=== PATIENT | male | born 1990 | race African-American/Black ===

== ENCOUNTER 2018-07-01 14:36 | Emergency (ER) | payer SELFPAY ==
[~2018-07-01] VITALS: Ht 180.3 cm; Wt 97.1 kg
[2018-07-01] MEDS ORDERED: IV NORMAL SALINE 1000ML BAG 1,000 ML IV ONE ×2 (15:15→15:30)
[2018-07-01] MEDS ORDERED: ONDANSETRON PF 4 MG/2 ML VIAL. IV ONE (15:15)
[2018-07-01 15:21] LABS: BASO % 0 % (0-3); EOS % 0 % (0-3); HEMATOCRIT 45.4 % (39.0-53.0); HEMOGLOBIN 15.2 g/dL (13.0-17.5); LYMPH # 1.2 x10^3/uL (1.0-4.8); LYMPH % 15 % (24-48); MEAN CORPUSCULAR HEMOGLOBIN 28 pg (25-35); MEAN CORPUSCULAR HGB CONC 33 g/dL (31-37); MEAN CORPUSCULAR VOLUME 84 fL (79-100); MONO # 0.4 x10^3/uL (0.0-1.1); MONO % 5 % (0-9); NEUT # 6.2 x10^3uL (1.8-7.7); NEUT % 79 % (31-73); PLATELET COUNT 166 x10^3/uL (140-400); RED CELL DISTRIBUTION WIDTH 13.5 % (11.5-14.5); WHITE BLOOD COUNT 7.8 x10^3/uL (4.0-11.0)
[2018-07-01] MEDS ORDERED: DICYCLOMINE 20 MG/2 ML AMPUL. IM ONE (15:30)
[2018-07-01] MEDS ORDERED: KETOROLAC 30 MG/ML VIAL. IV ONE (15:30)
[2018-07-01 15:35] LABS: CALCIUM 10.4 mg/dL (8.5-10.1); CREATININE 1.1 mg/dL (0.7-1.3); GFR 95.1; POTASSIUM 3.9 mmol/L (3.5-5.1)
[2018-07-01 15:41] LABS: ALBUMIN 4.6 g/dL (3.4-5.0); ALBUMIN/GLOBULIN RATIO 1.3 (1.0-1.7); TOTAL BILIRUBIN 0.4 mg/dL (0.2-1.0); TOTAL PROTEIN 8.2 g/dL (6.4-8.2)
--- NOTE | 2018-07-01 15:43 | PHYS DOC ---
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 Patients now having withdrawal symptoms such as abdominal pain, nausea, vomiting, diarrhea, chills, sweating. He is alert and oriented. Review of Systems Review of Systems Constitutional: Denies fever or chills [] Eyes: Denies change in visual acuity, redness, or eye pain [] HENT: Denies nasal congestion or sore throat [] Respiratory: Denies cough or shortness of breath [] Cardiovascular: No additional information not addressed in HPI [] GI: Denies abdominal pain, nausea, vomiting, bloody stools or diarrhea [] : Denies dysuria or hematuria [] Musculoskeletal: Denies back pain or joint pain [] Integument: Denies rash or skin lesions [] Neurologic: Denies headache, focal weakness or sensory changes [] Endocrine: Denies polyuria or polydipsia [] All other systems were reviewed and found to be within normal limits, except as documented in this note. Current Medications Current Medications Current Medications Medications (Trade) Dose Ordered Sig/Zafar Start Time Stop Time Status Last Admin Dose Admin Dicyclomine HCl (Bentyl) 10 mg 1X ONCE 07/01/18 15:30 07/01/18 15:31 DC 07/01/18 15:42 10 MG Hydroxyzine Pamoate (Vistaril) 25 mg PRN Q6HRS PRN 07/01/18 17:15 Ketorolac Tromethamine (Toradol 30mg Vial) 30 mg 1X ONCE 07/01/18 15:30 07/01/18 15:31 DC 07/01/18 15:40 30 MG Ondansetron HCl (Zofran) 4 mg 1X ONCE 07/01/18 15:15 07/01/18 15:16 DC 07/01/18 15:38 4 MG Sodium Chloride 1,000 ml @ 1,000 mls/hr 1X ONCE 07/01/18 15:30 07/01/18 16:29 DC 07/01/18 15:37 1,000 MLS/HR Allergies Allergies Allergies Coded Allergies Type Severity Reaction Last Updated Verified No Known Drug Allergies 01/12/14 No Physical Exam Physical Exam Constitutional: Well developed, well nourished, no acute distress, non-toxic appearance. [] HENT: Normocephalic, atraumatic, bilateral external ears normal, oropharynx moist, no oral exudates, nose normal. [] Eyes: PERRLA, EOMI, conjunctiva normal, no discharge. [] Neck: Normal range of motion, no tenderness, supple, no stridor. [] Cardiovascular:Heart rate regular rhythm, no murmur [] Lungs & Thorax: Bilateral breath sounds clear to auscultation [] Abdomen: Bowel sounds normal, soft, no tenderness, no masses, no pulsatile masses. [] Skin: Warm, dry, no erythema, no rash. [] Back: No tenderness, no CVA tenderness. [] Extremities: No tenderness, no cyanosis, no clubbing, ROM intact, no edema. [] Neurologic: Alert and oriented X 3, normal motor function, normal sensory function, no focal deficits noted. [] Psychologic: Affect normal, judgement normal, mood normal. [] Current Patient Data Vital Signs Vital Signs Date Time Temp Pulse Resp B/P (MAP) Pulse Ox O2 Delivery O2 Flow Rate FiO2 07/01/18 14:38 98.3 55 24 144/65 (91) 100 Room Air 98.3 Lab Values Laboratory Tests Test 07/01/18 14:45 White Blood Count 7.8 x10^3/uL (4.0-11.0) Red Blood Count 5.40 x10^6/uL (4.30-5.70) Hemoglobin 15.2 g/dL (13.0-17.5) Hematocrit 45.4 % (39.0-53.0) Mean Corpuscular Volume 84 fL (79-100) Mean Corpuscular Hemoglobin 28 pg (25-35) Mean Corpuscular Hemoglobin Concent 33 g/dL (31-37) Red Cell Distribution Width 13.5 % (11.5-14.5) Platelet Count 166 x10^3/uL (140-400) Neutrophils (%) (Auto) 79 % (31-73) H Lymphocytes (%) (Auto) 15 % (24-48) L Monocytes (%) (Auto) 5 % (0-9) Eosinophils (%) (Auto) 0 % (0-3) Basophils (%) (Auto) 0 % (0-3) Neutrophils # (Auto) 6.2 x10^3uL (1.8-7.7) Lymphocytes # (Auto) 1.2 x10^3/uL (1.0-4.8) Monocytes # (Auto) 0.4 x10^3/uL (0.0-1.1) Eosinophils # (Auto) 0.0 x10^3/uL (0.0-0.7) Basophils # (Auto) 0.0 x10^3/uL (0.0-0.2) Sodium Level 143 mmol/L (136-145) Potassium Level 3.9 mmol/L (3.5-5.1) Chloride Level 104 mmol/L (98-107) Carbon Dioxide Level 29 mmol/L (21-32) Anion Gap 10 (6-14) Blood Urea Nitrogen 14 mg/dL (8-26) Creatinine 1.1 mg/dL (0.7-1.3) Estimated GFR (Cockcroft-Gault) 95.1 BUN/Creatinine Ratio 13 (6-20) Glucose Level 118 mg/dL (70-99) H Calcium Level 10.4 mg/dL (8.5-10.1) H Total Bilirubin 0.4 mg/dL (0.2-1.0) Aspartate Amino Transferase (AST) 21 U/L (15-37) Alanine Aminotransferase (ALT) 37 U/L (16-63) Alkaline Phosphatase 78 U/L (46-116) Creatine Kinase 311 U/L (39-308) H Total Protein 8.2 g/dL (6.4-8.2) Albumin 4.6 g/dL (3.4-5.0) Albumin/Globulin Ratio 1.3 (1.0-1.7) Laboratory Tests 07/01/18 14:45 Laboratory Tests 07/01/18 14:45 EKG EKG sinus rosalinda, no STEMI[] Interpretation Time: [address] Bhatt Radiology/Procedures Radiology/Procedures Chest xray Impressions: [facility] [address] [place] [address] IMAGING REPORT Signed PATIENT: YOMAIRA ACUNA ACCOUNT: [id number] : 1990 LOCATION: ER AGE: 28 SEX: M EXAM STATUS: REG ER ORD. PHYSICIAN: HONEY RACHEL APRN REASON: withdrawl,23 PROCEDURE: PORTABLE CHEST 1V AP chest 07/01/2017 CLINICAL INDICATION: Weakness and fatigue. COMPARISON: Chest 08/01/2014 FINDINGS: Cardiac and mediastinal silhouettes are unremarkable. No pleural effusion, pneumothorax or focal consolidation. IMPRESSION: No acute cardiopulmonary abnormality. Electronically signed by: Nikhil Peres MD (07/01/2018 4:05 PM) [facility] DICTATED and SIGNED BY: NIKHIL PERES MD DATE: 07/01/18 1605 Course & Med Decision Making Course & Med Decision Making Patient is a 28 year old male who presents with patient was on Suboxone and he took himself off of it himself again a half ago. Patients now having withdrawal symptoms such as abdominal pain, nausea, vomiting, diarrhea, chills, sweating. He is alert and oriented. Diaphoretic but skin is warm and pink. Mucus membranes moist. Patient denies chest pain or shortness of air. He states he does not remember who was giving his Suboxone. After speaking more to the patient he was not going to a clinic he was buying Suboxone off the street. Patient could not give me a good explanation on why he stopped taking the Suboxone. Abdomen is soft and nontender. Afebrile. Heart rate 58, blood pressure 143/63, 100% RA, 18RR. Patient rates his pain at a 9/10. PERRLA. No extremity swelling. I have consulted PAT team to come and talk to the patient. Lungs are clear to auscultation in all lobes. Denies numbness or tingling. Chest xray Shows no acute findings. Patient is going to follow up with [facility] in the morning and PAT team Varsha has given him the information. Patient is having a friend drive him home from ED. Patient will be given hydroxyzine before leaving. He will be prescribed Zofran, hydroxyzine, Catapres and to take ibuprofen for pain. Patient is stable and in no distress. Patient remains alert and oriented. Patient is refusing to give a urine specimen. Dragon Disclaimer Dragon Disclaimer This electronic medical record was generated, in whole or in part, using a voice recognition dictation system. Departure Departure Impression: Primary Impression: Opioid withdrawal Disposition: HOME, SELF-CARE Condition: STABLE Referrals: NO PCP (PCP) Patient Instructions: Narcotic Withdrawal, Opiate Dependence Additional Instructions: Follow-up with [facility] in the morning. Take medications as prescribed. Scripts Hydroxyzine Hcl (HYDROXYZINE HCL) 25 Mg Tablet 25 MG PO TID, #8 TAB Prov: HONEY RACHEL APRN 07/01/18 Clonidine Hcl (CATAPRES) 0.1 Mg Tablet 0.1 MG PO DAILY, #5 TAB Prov: HONEY RACHEL APRN 07/01/18 Ondansetron (ONDANSETRON ODT) 4 Mg Tab.rapdis 1 TAB PO PRN Q6-8HRS, #20 TAB Prov: HONEY RACHEL APRN 07/01/18 HONEY RACHEL APRN Jul 01, 2018 15:43
--- NOTE | 2018-07-01 15:51 | EKG ---
[facility] [address] [place] [address] Test Date: 2018-07-01 Test Time: 15:19:18 Pat Name: YOMAIRA ACUNA Department: Room: Gender: M Cocktail Waitress: : 1990 Requested By: HONEY RACHEL Order Number: [id number] Reading MD: Jewel Yusuf Measurements Intervals [place] Rate: 54 P: WI: QRS: -8 QRSD: 94 T: -8 QT: 408 QTc: 392 Interpretive Statements SINUS RHYTHM LEFTWARD AXIS NON SPECIFIC T ABNORMALITY ABNORMAL ECG Electronically Signed On 07-06-2018 9:28:58 LOGGING SUPERVISOR by Jewel Yusuf
--- NOTE | 2018-07-01 16:11 | RAD ---
AP chest 07/01/2017 CLINICAL INDICATION: Weakness and fatigue. COMPARISON: Chest 08/01/2014 FINDINGS: Cardiac and mediastinal silhouettes are unremarkable. No pleural effusion, pneumothorax or focal consolidation. IMPRESSION: No acute cardiopulmonary abnormality. Electronically signed by: Franki Peres MD (07/01/2018 4:05 PM) [facility]
[2018-07-01] MEDS ORDERED: ONDA4TAB12 PO (17:07)
[2018-07-01] MEDS ORDERED: HYDR25TA PO (17:07)
[2018-07-01] MEDS ORDERED: CLON0.1T12 PO (17:07)
[2018-07-01 17:10] VITALS: BP 118/56
[2018-07-01] MEDS ORDERED: hydrOXYzine PAMOATE 25 MG CAPSULE PO PRN (17:15)
== END 2018-07-01 17:59 | disposition home or self-care (01) ==
LOC: ER 14:36
DX: F11.23 Opioid dependence with withdrawal (principal); R11.2 Nausea with vomiting, unspecified; R19.7 Diarrhea, unspecified
CPT/HCPCS: 36415; 71045; 80053; 82550; 85025; 93005; 96361; 96372; 96374; 96375; 99284; J0500; J1885; J2405; J7030; Q0177

== ENCOUNTER 2021-01-13 18:57 | Emergency (ER) | payer BC ==
[~2021-01-13] VITALS: Ht 180.3 cm; Wt 100.0 kg
[~2021-01-13 18:57] MED LIST: CLON0.1T12 PO; HYDR25TA PO; ONDA4TAB12 PO
[2021-01-13] MEDS ORDERED: IV NORMAL SALINE 1000ML BAG 1,000 ML IV ONE (21:30)
[2021-01-13] MEDS ORDERED: ONDANSETRON PF 4 MG/2 ML VIAL. IVP ONE (21:30)
[2021-01-13] MEDS ORDERED: ACETAMINOPHEN 650 MG/20.3 ML SOLUTION. PO ONE (21:30)
[2021-01-13 22:01] VITALS: BP 143/77
[2021-01-13 22:07] LABS: BASO % 0 % (0-3); EOS % 0 % (0-3); HEMATOCRIT 46.4 % (39.0-53.0); HEMOGLOBIN 15.8 g/dL (13.0-17.5); LYMPH # 0.9 x10^3/uL (1.0-4.8); LYMPH % 11 % (24-48); MEAN CORPUSCULAR HEMOGLOBIN 29 pg (25-35); MEAN CORPUSCULAR HGB CONC 34 g/dL (31-37); MEAN CORPUSCULAR VOLUME 84 fL (79-100); MONO # 0.5 x10^3/uL (0.0-1.1); MONO % 6 % (0-9); NEUT # 6.6 x10^3/uL (1.8-7.7); NEUT % 82 % (31-73); PLATELET COUNT 180 x10^3/uL (140-400); RED CELL DISTRIBUTION WIDTH 13.6 % (11.5-14.5); WHITE BLOOD COUNT 8.1 x10^3/uL (4.0-11.0)
[2021-01-13 22:15] LABS: CALCIUM 9.8 mg/dL (8.5-10.1); CREATININE 1.2 mg/dL (0.7-1.3); GFR 84.9; POTASSIUM 4.4 mmol/L (3.5-5.1)
[2021-01-13 22:21] LABS: ALBUMIN 4.3 g/dL (3.4-5.0); ALBUMIN/GLOBULIN RATIO 1.3 (1.0-1.7); TOTAL BILIRUBIN 0.4 mg/dL (0.2-1.0); TOTAL PROTEIN 7.7 g/dL (6.4-8.2)
--- NOTE | 2021-01-13 22:29 | PHYS DOC ---
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 Patient is also complaining of chills. Denies any abdominal pain, hematemesis or melena. Denies any cough or congestion. (ISRA VENTURA [employer]END[employer]) Review of Systems: Review of Systems: Constitutional: Denies fever or chills. [] Eyes: Denies change in visual acuity. [] HENT: Denies nasal congestion or sore throat. [] Respiratory: Denies cough or shortness of breath. [] Cardiovascular: Denies chest pain or edema. [] GI: Reports nausea, vomiting and diarrhea. Denies abdominal pain, bloody stools : Denies dysuria. [] Musculoskeletal: Denies back pain or joint pain. [] Integument: Denies rash. [] Neurologic: Denies headache, focal weakness or sensory changes. [] Psychiatric: Denies depression or anxiety. [] (ISRA VENTURA Mansoor [employer]) Heart Score: C/O Chest Pain: N/A Risk Factors: Risk Factors: DM, Current or recent (<one month) smoker, HTN, HLP, family history of CAD, obesity. Risk Scores: Score 0 - 3: 2.5% MACE over next 6 weeks - Discharge Home Score 4 - 6: 20.3% MACE over next 6 weeks - Admit for Clinical Observation Score 7 - 10: 72.7% MACE over next 6 weeks - Early Invasive Strategies (RAQUELBelenISRA Mansoor [employer]) Current Medications: Current Medications Medications (Trade) Dose Ordered Sig/Zafar Start Time Stop Time Status Last Admin Dose Admin Acetaminophen (Tylenol) 650 mg 1X ONCE 01/13/21 21:30 01/13/21 21:31 DC 01/13/21 21:48 650 MG Ondansetron HCl (Zofran) 4 mg 1X ONCE 01/13/21 21:30 01/13/21 21:31 DC 01/13/21 21:49 4 MG Sodium Chloride 1,000 ml @ 1,000 mls/hr 1X ONCE 01/13/21 21:30 01/13/21 22:29 01/13/21 21:48 1,000 MLS/HR (ISRA VENTURA [employer]) Allergies: Allergies: Allergies Coded Allergies Type Severity Reaction Last Updated Verified No Known Drug Allergies 01/12/14 No (ISRA VENTURA [employer]) Physical Exam: PE: Constitutional: Well developed, well nourished, no acute distress, non-toxic appearance. [] HENT: Normocephalic, atraumatic, bilateral external ears normal, oropharynx moist, no oral exudates, nose normal. [] Eyes: PERRLA, EOMI, conjunctiva normal, no discharge. [] Neck: Normal range of motion, no tenderness, supple, no stridor. [] Cardiovascular:Heart rate regular rhythm, no murmur [] Lungs & Thorax: Bilateral breath sounds clear to auscultation [] Abdomen: Bowel sounds normal, soft, no tenderness, no masses, no pulsatile masses. [] Skin: Warm, dry, no erythema, no rash. [] Back: No tenderness, no CVA tenderness. [] Extremities: No tenderness, no cyanosis, no clubbing, ROM intact, no edema. [] Neurologic: Alert and oriented X 3, normal motor function, normal sensory function, no focal deficits noted. [] Psychologic: Affect normal, judgement normal, mood normal. [] (ISRA VENTURA [employer]) Current Patient Data: Labs: Laboratory Tests Test 01/13/21 21:45 White Blood Count 8.1 x10^3/uL (4.0-11.0) Red Blood Count 5.50 x10^6/uL (4.30-5.70) Hemoglobin 15.8 g/dL (13.0-17.5) Hematocrit 46.4 % (39.0-53.0) Mean Corpuscular Volume 84 fL (79-100) Mean Corpuscular Hemoglobin 29 pg (25-35) Mean Corpuscular Hemoglobin Concent 34 g/dL (31-37) Red Cell Distribution Width 13.6 % (11.5-14.5) Platelet Count 180 x10^3/uL (140-400) Neutrophils (%) (Auto) 82 % (31-73) H Lymphocytes (%) (Auto) 11 % (24-48) L Monocytes (%) (Auto) 6 % (0-9) Eosinophils (%) (Auto) 0 % (0-3) Basophils (%) (Auto) 0 % (0-3) Neutrophils # (Auto) 6.6 x10^3/uL (1.8-7.7) Lymphocytes # (Auto) 0.9 x10^3/uL (1.0-4.8) L Monocytes # (Auto) 0.5 x10^3/uL (0.0-1.1) Eosinophils # (Auto) 0.0 x10^3/uL (0.0-0.7) Basophils # (Auto) 0.0 x10^3/uL (0.0-0.2) Sodium Level 146 mmol/L (136-145) H Potassium Level 4.4 mmol/L (3.5-5.1) Chloride Level 104 mmol/L (98-107) Carbon Dioxide Level 28 mmol/L (21-32) Anion Gap 14 (6-14) Blood Urea Nitrogen 11 mg/dL (8-26) Creatinine 1.2 mg/dL (0.7-1.3) Estimated GFR (Cockcroft-Gault) 84.9 BUN/Creatinine Ratio 9 (6-20) Glucose Level 119 mg/dL (70-99) H Calcium Level 9.8 mg/dL (8.5-10.1) Total Bilirubin Pending Aspartate Amino Transferase (AST) Pending Alanine Aminotransferase (ALT) Pending Alkaline Phosphatase Pending Total Protein Pending Albumin Pending Albumin/Globulin Ratio Pending Lipase Pending Ethyl Alcohol Level < 10 mg/dL (0-10) Laboratory Tests 01/13/21 21:45 Laboratory Tests 01/13/21 21:45 Vital Signs: Vital Signs Date Time Temp Pulse Resp B/P (MAP) Pulse Ox O2 Delivery O2 Flow Rate FiO2 01/13/21 20:06 99.0 63 16 123/83 (76) 99 Room Air 99.0 (ISRA VENTURA APRN) EKG: EKG: [] (ISRA VENTURA APRN) Radiology/Procedures: Radiology/Procedures: [] (ISRA VENTURA APRN) Course & Med Decision Making: Course & Med Decision Making Pertinent Labs and Imaging studies reviewed. (See chart for details) This is a 30-year-old male patient presented to the ED today with nausea vomiting and diarrhea, symptoms began 1 day ago. CBC CMP lipase with no acute findings. Patient has been given IV fluids, Zofran, Decadron, feeling better. Negative rapid covid. Discharge to home. Follow-up with PCP in 1 week. (ISRA VENTURA APRN) Course & Med Decision Making Patients Care and treatment plan provided by ER Nurse Practitioner. I was available for consult. Patient's chart reviewed. (SHONDA WARD DO) Dragon Disclaimer: Dragon Disclaimer: This electronic medical record was generated, in whole or in part, using a voice recognition dictation system. (ISRA VENTURA APRN) Departure Departure Impression: Primary Impression: Nausea and vomiting Qualified Codes: R11.2 - Nausea with vomiting, unspecified Additional Impressions: Diarrhea Qualified Codes: R19.7 - Diarrhea, unspecified Fever Qualified Codes: R50.9 - Fever, unspecified Person under investigation for COVID-19 Disposition: HOME / SELF CARE / HOMELESS Condition: STABLE Referrals: NO PCP (PCP) Follow-up with your doctor in 1 week Patient Instructions: Diarrhea, [id number], Nausea and Vomiting, [id number] Additional Instructions: You were evaluated in the emergency room for nausea vomiting and diarrhea. You are running a slight temperature. Take Tylenol or Motrin for pain or fever. Your lab work was negative for any acute findings. We will send a prescription for Zofran to your local pharmacy. Take it as needed for nausea or vomiting. Push fluids, maintain good hand hygiene. Your rapid Covid test is negative. We will call you in the course of next week and let you know if your PCR Covid test will be positive. In the meantime quarantine yourself until you get results from us Scripts Promethazine Hcl (PROMETHAZINE HCL) 25 Mg Tablet 1 TAB PO PRN Q6HRS, #20 TAB Prov: ISRA VENTURA APRN 01/13/21 Ondansetron (ONDANSETRON ODT) 4 Mg Tab.rapdis 1 TAB PO PRN Q6-8HRS, #16 TAB Prov: ISRA VENTURA APRN 01/13/21 ISRA VENTURA APRN Jan 13, 2021 22:29 SHONDA WARD DO Jan 14, 2021 18:32
[2021-01-13] MEDS ORDERED: ONDA4TAB12 PO (22:39)
[2021-01-13] MEDS ORDERED: PROM25TA10 PO (22:45)
[2021-01-13] MEDS ORDERED: PROCHLORPERAZINE 10 MG/2 ML VIAL. IV ONE (23:00)
--- NOTE | 2021-01-15 10:45 | NUR ---
IP: Attempted to contact pt concerning covid results. Sanam stated he was sleeping and hung up on me.
--- NOTE | 2021-01-15 11:02 | NUR ---
IP: Pt called for covid test results, Informed pt of negative test. Pt verbalized understanding.
== END 2021-01-13 23:00 | disposition home or self-care (01) ==
LOC: ER 18:57
DX: R11.2 Nausea with vomiting, unspecified (principal); Z20.822 Contact with and (suspected) exposure to COVID-19; R19.7 Diarrhea, unspecified; R50.9 Fever, unspecified
CPT/HCPCS: 36415; 80053; 83690; 85025; 87426; 96361; 96374; 96375; 99284; G0480; J0780; J2405; J7030; U0003; U0005